=== PATIENT | female | born 1955 | race Caucasian/White ===

== ENCOUNTER → 2016-11-29 | Outpatient (CLI) | payer BC ==
[2016-11-29 10:13] LABS: BUN/CREATININE RATIO 35 (0-10)
[2016-11-29 13:50] LABS: HEMOGLOBIN 13.5 gm/dl (12.3-15.3); RED BLOOD COUNT 4.81 M/UL (4.00-5.10); WHITE BLOOD COUNT 8.2 K/UL (4.5-11.0)
== END ==
LOC: US 09:02
PROVIDERS: Internal Medicine
DX: K76.0 Fatty (change of) liver, not elsewhere classified (principal); K76.89 Other specified diseases of liver; E55.9 Vitamin D deficiency, unspecified; E78.5 Hyperlipidemia, unspecified; Z86.39 Personal history of other endocrine, nutritional and metabolic disease
CPT/HCPCS: 36415; 76705; 80048; 80061; 80076; 83735; 84443; 85025

== ENCOUNTER → 2020-12-28 | Outpatient (CLI) | payer BC, OTHER ==
[~2020-12-28] MED LIST: ANUCORT-HC25 MG PR; ASPIRIN EC325 MG PO; AZOR 5-20 MG T1 EACH PO; CHLORTHALIDONE25 MG PO; CLARITIN 10MG T10 MG PO; CLOBETASOL PRO118 M1 TP; CYANOCOBAL1000 MCG/1 INJ; ERYTHROMYCIN O3.5 GM OU; FENOFIBRATE145 MG PO; LEVOTHYROXINE125 MCG PO; LEVOTHYROXINE150 MCG PO; LOTRIMIN CREAM15 GM TP; SORINE80 MG PO; SOTALOL160 MG PO; VENTOLIN; VENTOLIN HFA 66.7 GM INH; VITAMIN D250 MCG PO
[2020-12-28 10:37] LABS: HEMOGLOBIN 13.3 gm/dl (12.3-15.3); RED BLOOD COUNT 4.75 M/UL (4.00-5.10); WHITE BLOOD COUNT 7.7 K/UL (4.5-11.0)
[2020-12-28 10:45] LABS: BUN/CREATININE RATIO 27 (0-10)
== END ==
LOC: OPSV2 09:00
PROVIDERS: Obstetrics & Gynecology
DX: Z01.812 Encounter for preprocedural laboratory examination (principal); N83.201 Unspecified ovarian cyst, right side
CPT/HCPCS: 36415; 80048; 81001; 85025; 93005